=== PATIENT | male | born 1965 | race Two or more races ===

== ENCOUNTER 2018-10-19 21:47 | Emergency (ER) | payer SELFPAY ==
[~2018-10-19] VITALS: Ht 167.6 cm; Wt 72.6 kg
[2018-10-19] MEDS ORDERED: OXYMETAZOLINE HCL NASAL SPRAY 30 ML BOTTLE NS ONE ×2 (22:23→22:30)
--- NOTE | 2018-10-19 22:28 | NUR ---
BIB[place]ar[place] FROM HOME. TO ER BED 9, AAOX4, NO RESP DISTRESS NOTED. AMBULATORY. C/O NOSE BLEEDING. PT REPORTS THAT IT STARETD EARLIER AROUND 3PM THEN IT STOPPED UNTIL IT STARTED AGAIN 1HOUR [employer]. UPON ASSESSMENT, NO ACTIVE BLEEDING NOTED. NOTED MIN DARK RED BLOOD AND CLOTS. PT REPORTS THAT THIS HAPPENS TO HIM EVERY SUMMER BECAUSE OF THE HEAT D/T BROKEN VESSEL IN THE NOSE. MD AT BEDSIDE FOR EVAL. ORDERS RECEIVED, NOTED AND CARRIED OUT.
--- NOTE | 2018-10-19 23:28 | NUR ---
No bleeding noted. Patient discharged to home in stable condition. Written and verbal after care instructions given. Patient verbalizes understanding of instruction. Pt ambulatory with a steady gait
[2018-10-19 23:29] VITALS: BP 138/87
== END 2018-10-19 23:29 | disposition home or self-care (01) ==
LOC: ER 21:50
DX: R04.0 Epistaxis (principal); I10 Essential (primary) hypertension

== ENCOUNTER 2019-12-06 07:36 | Emergency (ER) | payer MEDICAID ==
[~2019-12-06] VITALS: Ht 167.6 cm; Wt 63.5 kg
[2019-12-06] MEDS ORDERED: PHENYLEPHRINE 0.5% NASAL SPRAY 15 ML BOTTLE NS ONE ×2 (07:47→08:00)
[2019-12-06 07:50] VITALS: BP 142/94
--- NOTE | 2019-12-06 07:50 | NUR ---
PT BIBSELF WITH COPIUOUS AMOUNT OF NOSE BLEED. PT STATES THAT THIS HAPPENED BEFORE. VS CHECKED. AWAITING MD MAI.
--- NOTE | 2019-12-06 08:00 | NUR ---
APPLIED NOSE PLUG. NEOSYNEPHRINE ADMINISTERED,.
--- NOTE | 2019-12-06 08:11 | NUR ---
Patient discharged to home in stable condition. Written and verbal after care instructions given. Patient verbalizes understanding of instruction.
== END 2019-12-06 08:12 | disposition home or self-care (01) ==
LOC: ER 07:51
DX: R04.0 Epistaxis (principal); I10 Essential (primary) hypertension